=== PATIENT | male | born 1965 | race Caucasian/White ===

== ENCOUNTER 2021-02-06 20:15 | Observation (INO) ==
[2021-02-06] MEDS ORDERED: Magnesium Sulfate 1 GM/102 ML PIGGYBACK IVPB ONE (21:02)
[2021-02-06 21:25] LABS: BUN/Creatinine Ratio 12 (6-26); Blood Urea Nitrogen 8 mg/dL (6-20); Calcium 9.4 mg/dL (8.6-10.3); Carbon Dioxide 26 mEq/L (23-29); Chloride 100 mEq/L (98-107); Ethanol 210 mg/dL (Less than 10); Glucose 103 mg/dL (70-105); Osmolality,Calculated 287 (280-300); Potassium 3.2 mEq/L (3.5-5.1); Sodium 139 mEq/L (136-145); eGFR For African Americans > 60 (> 60); eGFR For Non-African Americans > 60 (> 60)
[2021-02-06 21:28] LABS: Basophils # 0.1 K/mcL (0.0-0.2); Basophils % 1.2 %; Eosinophils # 0.1 K/mcL (0.0-0.6); Eosinophils % 1.5 %; Hematocrit 42.5 % (37.5-50.1); Hemoglobin 14.9 g/dL (12.9-16.9); Immature Granulocytes % 0.3 % (0-4); Lymphocytes # 1.9 K/mcL (0.6-4.6); Lymphocytes % 31.8 %; Mean Corpuscular HGB Conc 35.1 g/dL (31.6-35.5); Mean Corpuscular Volume 105.5 fL (83.0-100.0); Mean Platelet Volume 11.8 fL (9.4-12.4); Monocytes # 0.3 K/mcL (0.0-1.3); Monocytes % 5.3 %; Neutrophils # 3.6 K/mcL (1.6-8.9); Red Blood Count 4.03 M/mcL (4.19-5.50); Red Cell Distribution Width 13.8 % (11.5-14.5); Segmented Neutrophils % 59.9 %
[2021-02-06 21:29] LABS: Platelet Count 98 K/mcL (140-400)
[2021-02-06] MEDS ORDERED: Ondansetron 4 MG/2 ML VIAL IVP PRN (22:28)
[2021-02-06] MEDS ORDERED: Naloxone 0.4 MG/ML INJ IVP PRN (22:28)
[2021-02-06] MEDS ORDERED: *HR* LORazepam 2 MG/ML VIAL IVP PRN ×3 (23:31)
[2021-02-06] MEDS: Vitamin B Complex/Vit C/Vit E 1 EACH TABLET PO SCH (23:47)
[2021-02-06] MEDS: Thiamine (B-1) 100 MG TABLET PO SCH (23:47)
[2021-02-06] MEDS: Folic Acid 1 MG TABLET PO SCH (23:47)
[2021-02-07 01:52] LABS: Hematocrit 38.8 % (37.5-50.1); Hemoglobin 13.7 g/dL (12.9-16.9); Mean Corpuscular HGB Conc 35.3 g/dL (31.6-35.5); Mean Corpuscular Hemoglobin 37.2 pg (28.0-33.3); Mean Corpuscular Volume 105.4 fL (83.0-100.0); Mean Platelet Volume 11.2 fL (9.4-12.4); Red Blood Count 3.68 M/mcL (4.19-5.50); Red Cell Distribution Width 13.7 % (11.5-14.5)
[2021-02-07 01:54] LABS: Immature Platelets 9.6 % (1.1-6.1); White Blood Count 4.4 K/mcL (4.3-11.1)
[2021-02-07 02:02] LABS: BUN/Creatinine Ratio 13 (6-26); Blood Urea Nitrogen 8 mg/dL (6-20); Calcium 9.3 mg/dL (8.6-10.3); Carbon Dioxide 24 mEq/L (23-29); Chloride 103 mEq/L (98-107); Glucose 81 mg/dL (70-105); Osmolality,Calculated 283 (280-300); Potassium 3.6 mEq/L (3.5-5.1); Sodium 138 mEq/L (136-145); eGFR For African Americans > 60 (> 60); eGFR For Non-African Americans > 60 (> 60)
[2021-02-07] MEDS: Vitamin B Complex/Vit C/Vit E 1 EACH TABLET PO SCH (08:21)
[2021-02-07] MEDS: Folic Acid 1 MG TABLET PO SCH (08:21)
[2021-02-07] MEDS: Thiamine (B-1) 100 MG TABLET PO SCH (08:21)
[2021-02-07] MEDS: Nicotine 14 MG PATCH.TD24 TD SCH (12:24)
[2021-02-07] MEDS ORDERED: traZODone 50 MG TABLET PO SCH (21:00)
[2021-02-08] MEDS ORDERED: Furosemide 20 MG TABLET PO SCH (09:00)
[2021-02-08] MEDS ORDERED: Fluticasone Propionate Nasal 50 MCG/SPRAY BOTTLE NS PRN (09:00)
[2021-02-08] MEDS ORDERED: lisinopriL 10 MG TABLET PO SCH (09:15)
[2021-02-08] MEDS: Vitamin B Complex/Vit C/Vit E 1 EACH TABLET PO SCH (10:09)
[2021-02-08] MEDS: Thiamine (B-1) 100 MG TABLET PO SCH (10:09)
[2021-02-08] MEDS: Folic Acid 1 MG TABLET PO SCH (10:09)
[2021-02-08] MEDS: Nicotine 14 MG PATCH.TD24 TD SCH (10:10)
[2021-02-08 12:01] VITALS: BP 118/82; PULSE 79; TEMP 97.4; O2SAT 94
[2021-02-08 12:18] LABS: Adenovirus Not Detected (Not Detect); Bordetella Pertussis Not Detected (Not Detect); Chlamydophila pneumoniae Not Detected (Not Detect); Coronavirus 229E Not Detected (Not Detect); Coronavirus HKU1 Not Detected (Not Detect); Coronavirus NL63 Not Detected (Not Detect); Coronavirus OC43 Not Detected (Not Detect); Human Metapneumovirus Not Detected (Not Detect); Human Rhinovirus/Enterovirus Not Detected (Not Detect); Influenza A Subtype 2009 H1 Not Detected (Not Detect); Influenza B Not Detected (Not Detect); Mycoplasma pneumoniae Not Detected (Not Detect); Parainfluenza Virus 1 Not Detected (Not Detect); Parainfluenza Virus 2 Not Detected (Not Detect); Parainfluenza Virus 3 Not Detected (Not Detect); Parainfluenza Virus 4 Not Detected (Not Detect); Respiratory Syncytial Virus Not Detected (Not Detect); SARS-CoV-2 Not Detected (Not Detect)
== END 2021-02-08 13:30 ==
LOC: EMEROOARM 20:15 → 3BNU 20:15 → SUATTDRO 22:00 → 3BNU 23:01
PROVIDERS: ADMIT Internal Medicine; ATTEND Internal Medicine

== ENCOUNTER 2022-03-06 19:57 | Inpatient (IN) ==
[2022-03-06] MEDS ORDERED: Tdap (Boostrix) Vaccine 0.5 ML SYRINGE IM ONE (20:32)
[2022-03-06 20:58] LABS: Hemoglobin 12.1 g/dL (12.9-16.9); Platelet Count 126 K/mcL (140-400); Red Cell Distribution Width 14.4 % (11.5-14.5); Segmented Neutrophils % 47.2 %
[2022-03-06 20:59] LABS: Basophils # 0.1 K/mcL (0.0-0.2); Basophils % 1.1 %; Eosinophils # 0.2 K/mcL (0.0-0.6); Eosinophils % 3.5 %; Hematocrit 36.3 % (37.5-50.1); Immature Granulocytes % 0.2 % (0-4); Immature Platelets 7.3 % (1.1-6.1); Lymphocytes # 1.9 K/mcL (0.6-4.6); Lymphocytes % 41.9 %; Mean Corpuscular HGB Conc 33.3 g/dL (31.6-35.5); Mean Corpuscular Hemoglobin 31.8 pg (28.0-33.3); Mean Corpuscular Volume 95.3 fL (83.0-100.0); Mean Platelet Volume 10.6 fL (9.4-12.4); Monocytes # 0.3 K/mcL (0.0-1.3); Monocytes % 6.1 %; Neutrophils # 2.2 K/mcL (1.6-8.9); Red Blood Count 3.81 M/mcL (4.19-5.50); White Blood Count 4.6 K/mcL (4.3-11.1)
[2022-03-06 21:04] LABS: Amphetamine Screen,Urine Negative ng/mL (Cutoff=1000); Barbiturate Screen,Urine Negative ng/mL (Cutoff=200); Benzodiazepines Screen,Urine Negative ng/mL (Cutoff=200); Cannabinoid Screen,Urine Negative ng/mL (Cutoff = 50); Cocaine Screen,Urine Negative ng/mL (Cutoff= 300); Opiate Screen,Urine Negative ng/mL (Cutoff=300); Phencyclidine Screen,Urine Negative ng/mL (Cutoff=25)
[2022-03-06 21:05] LABS: INR 1.2; Prothrombin Time 13.1 Seconds (9.4-12.1)
[2022-03-06 21:19] LABS: BUN/Creatinine Ratio 9 (6-26); Blood Urea Nitrogen 6 mg/dL (6-20); Calcium 8.7 mg/dL (8.6-10.3); Carbon Dioxide 24 mEq/L (23-29); Chloride 105 mEq/L (98-107); Ethanol 410 mg/dL (Less than 10); Glucose 86 mg/dL (70-105); Osmolality,Calculated 283 (280-300); Potassium 3.7 mEq/L (3.5-5.1); Sodium 138 mEq/L (136-145)
[2022-03-07] MEDS ORDERED: Melatonin 3 MG TABLET PO PRN (01:28)
[2022-03-07] MEDS ORDERED: Ondansetron ODT 4 MG TAB.RAPDIS SL PRN (01:28)
[2022-03-07] MEDS ORDERED: Naloxone 0.4 MG/ML INJ IVP PRN (01:28)
[2022-03-07] MEDS ORDERED: *HR* LORazepam 1 MG TABLET PO PRN ×2 (01:37)
[2022-03-07] MEDS: Thiamine (B-1) 100 MG in 0.9 % Sodium Chloride 50 ML IVPB SCH ×2 (03:28→10:49)
[2022-03-07 06:29] LABS: Hematocrit 35.3 % (37.5-50.1); Hemoglobin 11.4 g/dL (12.9-16.9); Mean Corpuscular HGB Conc 32.3 g/dL (31.6-35.5); Mean Corpuscular Hemoglobin 31.2 pg (28.0-33.3); Mean Corpuscular Volume 96.7 fL (83.0-100.0); Mean Platelet Volume 10.7 fL (9.4-12.4); Platelet Count 88 K/mcL (140-400); Red Blood Count 3.65 M/mcL (4.19-5.50); Red Cell Distribution Width 14.1 % (11.5-14.5); White Blood Count 4.1 K/mcL (4.3-11.1)
[2022-03-07 07:09] LABS: Alanine Aminotransferase 61 Units/L (7-52); Albumin 3.8 g/dL (3.5-5.7); Albumin/Globulin Ratio 1.5 (1.1-2.2); Alkaline Phosphatase 120 Units/L (34-104); Aspartate Amino Transferase 117 Units/L (13-39); BUN/Creatinine Ratio 10 (6-26); Bilirubin,Total 0.7 mg/dL (0.3-1.0); Blood Urea Nitrogen 7 mg/dL (6-20); Calcium 8.5 mg/dL (8.6-10.3); Carbon Dioxide 25 mEq/L (23-29); Chloride 104 mEq/L (98-107); Globulin 2.6 g/dL (2.4-3.5); Glucose 85 mg/dL (70-105); Magnesium 1.5 mg/dL (1.6-2.6); Osmolality,Calculated 283 (280-300); Phosphorous 3.5 mg/dL (2.7-4.5); Potassium 3.7 mEq/L (3.5-5.1); Sodium 138 mEq/L (136-145); Total Protein 6.4 g/dL (6.4-8.9)
[2022-03-07] MEDS: lisinopriL 5 MG TABLET PO SCH (08:22)
[2022-03-07] MEDS: Nicotine 21 MG PATCH.TD24 TD SCH (08:22)
[2022-03-07] MEDS: Folic Acid 1 MG TABLET PO SCH (08:22)
[2022-03-07] MEDS: *HR* LORazepam 1 MG TABLET PO PRN (10:49)
[2022-03-08 03:27] LABS: Basophils % 0.8 %; Eosinophils % 2.2 %; Monocytes % 7.8 %; Red Cell Distribution Width 14.1 % (11.5-14.5)
[2022-03-08 03:29] LABS: Eosinophils # 0.1 K/mcL (0.0-0.6); Hematocrit 37.7 % (37.5-50.1); Hemoglobin 12.3 g/dL (12.9-16.9); Immature Granulocytes % 0.3 % (0-4); Immature Platelets 8.6 % (1.1-6.1); Lymphocytes # 1.2 K/mcL (0.6-4.6); Lymphocytes % 32.3 %; Mean Corpuscular HGB Conc 32.6 g/dL (31.6-35.5); Mean Corpuscular Hemoglobin 31.2 pg (28.0-33.3); Mean Corpuscular Volume 95.7 fL (83.0-100.0); Mean Platelet Volume 11.4 fL (9.4-12.4); Monocytes # 0.3 K/mcL (0.0-1.3); Neutrophils # 2.1 K/mcL (1.6-8.9); Red Blood Count 3.94 M/mcL (4.19-5.50); Segmented Neutrophils % 56.6 %; White Blood Count 3.7 K/mcL (4.3-11.1)
[2022-03-08 03:40] LABS: Platelet Count 74 K/mcL (140-400)
[2022-03-08 03:48] LABS: BUN/Creatinine Ratio 15 (6-26); Blood Urea Nitrogen 10 mg/dL (6-20); Calcium 9.3 mg/dL (8.6-10.3); Carbon Dioxide 24 mEq/L (23-29); Chloride 104 mEq/L (98-107); Glucose 98 mg/dL (70-105); Magnesium 1.8 mg/dL (1.6-2.6); Osmolality,Calculated 281 (280-300); Phosphorous 3.6 mg/dL (2.7-4.5); Sodium 136 mEq/L (136-145)
[2022-03-08] MEDS ORDERED: Furosemide 20 MG TABLET PO SCH (09:00)
[2022-03-08] MEDS: Nicotine 21 MG PATCH.TD24 TD SCH (10:27)
[2022-03-08] MEDS: Folic Acid 1 MG TABLET PO SCH (10:29)
[2022-03-08] MEDS: lisinopriL 5 MG TABLET PO SCH (10:29)
[2022-03-08] MEDS: *HR* LORazepam 1 MG TABLET PO PRN ×2 (10:30→20:17)
[2022-03-08] MEDS: Thiamine (B-1) 100 MG in 0.9 % Sodium Chloride 50 ML IVPB SCH (11:02)
[2022-03-08 15:21] LABS: Influenza A PCR Negative (Negative); Influenza B PCR Negative (Negative); Resp. Syncytial Virus PCR Negative (Negative)
[2022-03-08 15:22] LABS: SARS-CoV-2 by PCR (In House) Negative (Negative)
[2022-03-08 17:49] VITALS: BP 153/97; PULSE 80; TEMP 98.1; O2SAT 97
[2022-03-08] MEDS ORDERED: Haloperidol Lactate 5 MG/ML VIAL IVP ONE (21:11)
== END 2022-03-08 21:24 | DRG 897 ==
LOC: EMEROOARM 19:57 → 3BNU 19:57 → SUATTDRO 03-07 01:18 → 3BNU 03-07 01:45
PROVIDERS: ADMIT Internal Medicine; ATTEND Internal Medicine